=== PATIENT | male | born 1930 | race Caucasian/White ===

== ENCOUNTER 2017-06-07 17:40 | Inpatient (IN) | payer MEDICARE, MEDICAID ==
[~2017-06-07] VITALS: Ht 182.9 cm; Wt 73.9 kg
[2017-06-07] MEDS ORDERED: CLOP75TA33 PO (18:51)
[2017-06-07] MEDS ORDERED: MEMA10TA PO (18:51)
[2017-06-07] MEDS ORDERED: FLUO20CA36 PO (18:51)
[2017-06-07] MEDS ORDERED: LOSA100T15 PO (18:51)
[2017-06-07] MEDS ORDERED: ATOR10TA PO (18:51)
[2017-06-07] MEDS ORDERED: ERGO500040 PO (18:51)
[2017-06-07] MEDS ORDERED: SITA1TAB2 PO (18:51)
--- NOTE | 2017-06-07 19:25 | NUR ---
Pt had unwitnessed fall and does not know anything about the circumstances. Pt has approx 2-3 cm lac on right rear parietal area, not actively bleeding, c/o nausea, doesn't remember if he had LOC. Pt A&Ox2, baseline. No apparent muscle deficits. Pt denies CP, SOB, dizziness, no other complaints, no distress noted.
--- NOTE | 2017-06-07 19:33 | NUR ---
Pt taken to CT
[2017-06-07 19:36] LABS: BASOPHILS # (AUTO) 0.1 K/uL (0.0-8.0); BASOPHILS % (AUTO) 0.9 % (0.0-2.0); EOSINOPHILS # (AUTO) 0.4 K/uL (0.0-0.7); EOSINOPHILS % (AUTO) 5.5 % (0.0-7.0); HEMATOCRIT 37.7 % (36.7-47.1); HEMOGLOBIN 12.9 g/dL (12.5-16.3); LYMPHOCYTES # (AUTO) 1.1 K/uL (20.0-40.0); LYMPHOCYTES % (AUTO) 16.1 % (20.5-51.5); MEAN CORPUSCULAR HGB CONC 34 g/dL (32.5-36.3); MEAN CORPUSCULAR VOLUME 96.8 fL (73.0-96.2); MONOCYTES # (AUTO) 0.7 K/uL (2.0-10.0); MONOCYTES % (AUTO) 9.6 % (0.0-11.0); NEUTROPHILS # (AUTO) 4.6 K/uL (1.8-8.9); NEUTROPHILS % (AUTO) 67.9 % (38.5-71.5); PLATELET COUNT (AUTO) 128 K/uL (152-348); RED BLOOD CELL COUNT(AUTO) 3.89 MIL/uL (4.06-5.63); WHITE BLOOD COUNT (AUTO) 6.8 K/uL (3.6-10.2)
[2017-06-07 19:49] LABS: ALANINE AMINOTRANSFERASE 27 U/L (16-63); ALKALINE PHOSPHATASE 84 U/L (50-136); ASPARTATE AMINOTRANSFERASE 19 U/L (15-37); BILIRUBIN,DIRECT 0.1 mg/dL (0.0-0.2); BILIRUBIN,TOTAL 0.5 mg/dL (0.2-1.0); CARBON DIOXIDE 33 mmol/L (21-32); CHLORIDE 106 mmol/L (98-107); CREATININE 1.3 mg/dL (0.6-1.3); GLUCOSE 155 mg/dL (74-106); POTASSIUM 4.8 mmol/L (3.5-5.1); TOTAL PROTEIN, SERUM 7.2 g/dL (6.4-8.2); UREA NITROGEN, BLOOD 29 mg/dL (7-18)
--- NOTE | 2017-06-07 19:52 | NUR ---
Pt back from CT
--- NOTE | 2017-06-07 20:45 | NUR ---
Orthostatic VS LyinHR, 155/85 Standin HR, 143/87 informed
--- NOTE | 2017-06-07 21:52 | NUR ---
Pt was getting anxious and pulled off his monitor leads, informed, administered Ativan.
[2017-06-07] MEDS ORDERED: LORAZEPAM 2 MG/1 ML VIAL IV ONE (22:00)
[2017-06-07] MEDS ORDERED: LORAZEPAM 2 MG/1 ML VIAL ONE (22:06)
--- NOTE | 2017-06-07 22:43 | NUR ---
Report given to Randolph VILLAGRAN on Telemetry. Patient to be admitted to Telemetry , Room 217. Patient will be admitted under the care of Dr Jewel Crisostomo. Belongings list completed. Daughter at bedside. No acute distress noted. VSS.
[2017-06-07 23:35] VITALS: BP 146/65
--- NOTE | 2017-06-07 23:41 | NUR ---
NEW ADMIT FROM ER ADMITTED FOR FALL OBSERVATION. PATIENT IS CONFUSED BUT EASILY REDIRECTABLE. NO S/S OF PAIN OR DISTRESS. SAFETY MEASURES INITIATED, WILL CONTINUE TO MONITOR PATIENT
[2017-06-07] MEDS ORDERED: ONDANSETRON 4 MG/2 ML VIAL IV PRN (23:45)
[2017-06-07] MEDS ORDERED: HYDROCODONE/APAP 5-325MG TABLET PO PRN (23:45)
[2017-06-07] MEDS ORDERED: DEXTROSE 50% 50 ML DISP.SYRIN IV PRN (23:45)
[2017-06-07] MEDS ORDERED: Z GUARD REMEDY PASTE 57 GM TUBE TOP PRN (23:45)
[2017-06-07] MEDS ORDERED: ERGOCALCIFEROL 50,000 UNIT CAPSULE PO SCH (23:45)
[2017-06-07] MEDS ORDERED: ACETAMINOPHEN 325 MG TABLET PO PRN (23:45)
[2017-06-07] MEDS ORDERED: MAGNESIUM HYDROXIDE 30 ML LIQUID UDC PO PRN (23:45)
[2017-06-08 04:00] VITALS: BP 143/58
--- NOTE | 2017-06-08 05:50 | NUR ---
PATIENT CONFUSED THROUGHOUT THE NIGHT CONSISTENTLY TAKING ALL HIS CLOTHES OFF. MARVIN WRAP PLACED AROUND THE HEAD AND SECURED. PATIENT WITH NO EVIDENCE OF PAIN OR DISTRESS. SAFETY MEASURES MAINTAINED AT ALL TIMES
[2017-06-08] MEDS: BLOOD SUGAR DIAGNOSTIC 1 EACH STRIP VI SCH ×4 (06:45→21:23)
--- NOTE | 2017-06-08 07:39 | NUR ---
PT RECEIVED IN BED SLEEPING,NO C/O PAIN NOTED .V/S ARE STABLE.SITTER AT BED SIDE.
[2017-06-08] MEDS: SITAGLIPTIN PHOSPHATE 50 MG TABLET PO SCH (08:15)
[2017-06-08] MEDS: CLOPIDOGREL 75 MG TABLET PO SCH (08:15)
[2017-06-08] MEDS: MEMANTINE HCL 10 MG TABLET PO SCH ×2 (08:16→21:17)
[2017-06-08] MEDS: FLUOXETINE HCL 20 MG CAPSULE PO SCH (08:16)
[2017-06-08] MEDS: LOSARTAN POTASSIUM 50 MG TABLET PO SCH (08:16)
[2017-06-08] MEDS: METFORMIN HCL 500 MG TABLET PO SCH ×2 (08:16→17:12)
[2017-06-08] MEDS ORDERED: MEMANTINE HCL 10 MG TABLET PO SCH (09:00)
[2017-06-08] MEDS ORDERED: SITAGLIPTIN PHOSPHATE 50 MG TABLET PO SCH (09:00)
[2017-06-08 10:16] LABS: MONOCYTES # (AUTO) 0.4 K/uL (2.0-10.0); RED BLOOD CELL COUNT(AUTO) 3.45 MIL/uL (4.06-5.63)
[2017-06-08 10:29] LABS: BASOPHILS % (AUTO) 0.7 % (0.0-2.0); EOSINOPHILS # (AUTO) 0.3 K/uL (0.0-0.7); EOSINOPHILS % (AUTO) 6.1 % (0.0-7.0); LYMPHOCYTES # (AUTO) 0.8 K/uL (20.0-40.0); LYMPHOCYTES % (AUTO) 17.7 % (20.5-51.5); MEAN CORPUSCULAR HEMOGLOBIN 32.8 uug (23.8-33.4); MEAN CORPUSCULAR HGB CONC 34 g/dL (32.5-36.3); MEAN CORPUSCULAR VOLUME 96.3 fL (73.0-96.2); MONOCYTES % (AUTO) 8.4 % (0.0-11.0); NEUTROPHILS # (AUTO) 3.2 K/uL (1.8-8.9); NEUTROPHILS % (AUTO) 67.1 % (38.5-71.5); PLATELET COUNT (AUTO) 109 K/uL (152-348)
[2017-06-08 10:30] LABS: HEMATOCRIT 33.3 % (36.7-47.1); HEMOGLOBIN 11.3 g/dL (12.5-16.3); WHITE BLOOD COUNT (AUTO) 4.8 K/uL (3.6-10.2)
[2017-06-08 10:35] LABS: CARBON DIOXIDE 26 mmol/L (21-32); CHLORIDE 108 mmol/L (98-107); CHOLESTEROL 66 mg/dL (<200); CREATININE 1.1 mg/dL (0.6-1.3); GLUCOSE 163 mg/dL (74-106); HDL CHOLESTEROL 35 mg/dL (40-60); MAGNESIUM 1.9 mg/dL (1.8-2.4); PHOSPHOROUS 3.3 mg/dL (2.5-4.9); POTASSIUM 3.9 mmol/L (3.5-5.1); TRIGLYCERIDES 64 MG/DL (30-150); UREA NITROGEN, BLOOD 24 mg/dL (7-18)
[2017-06-08] MEDS: INSULIN REGULAR, HUMAN 300 UNIT/3 ML VIAL SQ PRN (11:39)
--- NOTE | 2017-06-08 12:19 | NUR ---
WOUND CARE CONSULT: PT PRESENTS WITH DRY INTACT DRESSING TO HEAD. ADMISSION PHOTO SHOWS STERI STRIPS. DRESSING NOT REMOVED AT THIS TIME. DEFER TO MD AND RECOMMEND SURGICAL CONSULT. PT ON ANTICOAGULANT. PT IS AMBULATORY WITH ASSISTANCE AND CONTINENT PER NURSING STAFF. CURRENT ELKIN SCORE IS 18. WILL SEE PRN. MD IN AGREEMENT WITH PLAN OF CARE.
[2017-06-08 12:23] VITALS: BP 111/56
[2017-06-08 15:05] VITALS: BP 118/64
[2017-06-08] MEDS: ATORVASTATIN 10 MG TABLET PO SCH (17:12)
--- NOTE | 2017-06-08 17:44 | NUR ---
PT RESTING IN HIS BED ,CALL LIGHT WITH IN REACH.SITTER IS AT BED SIDE FOR SAFETY.
[2017-06-08 20:00] VITALS: BP 135/87
--- NOTE | 2017-06-08 20:00 | NUR ---
PATIENT SLEEPS ON AND OFF, CONTINUES TO BE CONFUSED. NO EVIDENCE OF PAIN OR DISTRESS. SITTER REMAINS AT BED SIDE. SAFETY MAINTAINED AT ALL TIMES. CONTINUE TO MONITOR PATIENT
[2017-06-08] MEDS: ZOLPIDEM 5 MG TABLET PO PRN (21:18)
[2017-06-09 00:16] VITALS: BP 122/65
[2017-06-09 04:00] VITALS: BP 152/68
[2017-06-09] MEDS: BLOOD SUGAR DIAGNOSTIC 1 EACH STRIP VI SCH ×4 (06:42→20:29)
--- NOTE | 2017-06-09 06:48 | NUR ---
PATIENT SLEPT ON AND OFF THROUGH THE NIGHT, HE HAD LOW GRADE FEVER AT 99.4, TYLENOL GIVEN WITH EFFECT. SITTER REMAINS AT BED SIDE
--- NOTE | 2017-06-09 07:00 | NUR ---
RECEIVED PATIENT ON BED, ASLEEP, A AND O X 1 WITH CONFUSION AND FORGETFULNESS. NO ACUTE DISTRESS NOTED. WITH HEPLOCK ON THEL EFT AC # 20, INTACT AND PATENT. WITH SURGICAL WOUND ON TOP OF THE HEAD SECURED WITH TABBY, COVERED WITH DRESSING. NO SIGNS SND SYMPTOMS OF INFECTION. NO INSULIN COVERAGE NEEDED FOR BREAKFAST, 1:1 SITTER AT BEDSIDE. ALL COMFORT MEASURES PROVIDED. WILL CONTINUE TO MONITOR
[2017-06-09] MEDS: SITAGLIPTIN PHOSPHATE 50 MG TABLET PO SCH (08:21)
[2017-06-09] MEDS: CLOPIDOGREL 75 MG TABLET PO SCH (08:21)
[2017-06-09] MEDS: FLUOXETINE HCL 20 MG CAPSULE PO SCH (08:22)
[2017-06-09] MEDS: LOSARTAN POTASSIUM 50 MG TABLET PO SCH (08:22)
[2017-06-09] MEDS: MEMANTINE HCL 10 MG TABLET PO SCH ×2 (08:22→20:25)
[2017-06-09] MEDS: METFORMIN HCL 500 MG TABLET PO SCH ×2 (08:22→17:10)
[2017-06-09 10:46] VITALS: BP 119/43
--- NOTE | 2017-06-09 11:30 | NUR ---
PATIENT HAD EPISODE OF AGITATION SAYING HE WANTED "TO PUT A HOLE IN HIS FINGER SO THAT THE BLOOD WILL COME OUT", INFORMED DR. MORENO, SAID HE WILL COME AND SEE PATIENT.
[2017-06-09 11:35] LABS: *BILIRUBIN,URIN NEGATIVE (NEGATIVE); *BLOOD, URINE NEGATIVE (NEGATIVE); *CLARITY,URINE CLEAR (CLEAR); *COLOR,URINE YELLOW (YELLOW); *KETONES,URINE NEGATIVE (NEGATIVE); *PROTEIN,URINE NEGATIVE (NEGATIVE); *UROBILINOGEN,URINE 0.2 E.U./dl (NORMAL); LEUKOCYTE ESTERASE ,URINE 1+ (NEGATIVE); NITRITE, URINE NEGATIVE (NEGATIVE); UGLUCOSE NEGATIVE (NEGATIVE)
[2017-06-09 11:48] LABS: BACTERIA,URINE MODERATE /HPF (NONE SEEN); RBC,URINE 0-3 /HPF (0-3)
[2017-06-09 11:49] LABS: SQUAMOUS EPITHELIAL CELL,UR MODERATE /HPF (NONE SEEN)
--- NOTE | 2017-06-09 12:00 | NUR ---
SEEN AND EXAMINED BY DR. MORENO WITH ORDERS NOTED AND CARRIED OUT.
[2017-06-09] MEDS ORDERED: QUETIAPINE FUMARATE 25 MG TABLET PO ONE (12:15)
[2017-06-09 16:00] VITALS: BP 140/67
[2017-06-09 16:21] VITALS: BP 140/67
--- NOTE | 2017-06-09 16:30 | NUR ---
SEEN AND EXAMINED BY DR. TABARES FOR PSYCH CONSULT, WITH ORDERS NOTED AND CARRIED OUT.
[2017-06-09] MEDS: ATORVASTATIN 10 MG TABLET PO SCH (17:10)
--- NOTE | 2017-06-09 19:30 | NUR ---
PT IN ROOM ALERT AND CONFUSED. NO INCREASED AGITATION OR ABNORMAL BEHAVIOR AT THIS TIME. NO S/S OF HYPER/HYPOGLYCEMIA. NO ACTIVE BLEEDING OR S/S OF INFECTION NOTED TO AFFECTED AREA ON TOP OF HEAD. SITTER AT BEDSIDE AND BED ALARM NOTED. CONTINUE TO MONITOR FOR FALL OBSERVATION.
[2017-06-09 20:00] VITALS: BP 125/71
[2017-06-09] MEDS: INSULIN REGULAR, HUMAN 300 UNIT/3 ML VIAL SQ PRN (20:32)
[2017-06-09] MEDS ORDERED: QUETIAPINE FUMARATE 25 MG TABLET PO SCH (21:00)
[2017-06-09] MEDS: ZOLPIDEM 5 MG TABLET PO PRN (23:08)
[2017-06-10 04:55] VITALS: BP 143/60
--- NOTE | 2017-06-10 05:00 | NUR ---
PT IN ROOM ALERT WITH SOME CONFUSION BUT NO ACUTE DISTRESS. NO S/S OF INCREASED AGITATION AT THIS TIME. FREQUENT REMINDERS AND REORIENTATION ENFORCED. NO REACTION TO RECENT SEROQUEL GIVEN. BP NOTED 143/60. CONTINUE TO MONITOR. NO S/S OF HYPER/HYPOGLYCEMIA.
--- NOTE | 2017-06-10 07:00 | NUR ---
RECEIVED PATIENT ON BED, ASLEEP, A AND O X 1 WITH EPISODES OF CONFUSION AND AGITATION. NO ACUTE DISTRESS NOTED. 1:1 SITTER AT BEDSIDE. NO INSULIN COVERAGE NEEDED FOR AM. WITH WOUND ON TOP OF HEAD, DRESSING CHANGED LAST NIGHT BUT PATIENT KEEPS REMOVING THE DRESSING. NO S/S OF INFECTION NOTED, HEALING PROGRESSIVELY. NO COMPLAINTS OF PAIN/DISCOMFORT. ALL COMFORT MEASURES PROVIDED. ALL NEEDS ATTENDED AND ANTICIPATED WILL CONTINUE TO MONITOR CLOSELY.
[2017-06-10] MEDS: BLOOD SUGAR DIAGNOSTIC 1 EACH STRIP VI SCH ×3 (07:33→17:23)
[2017-06-10 08:00] VITALS: BP 150/77
[2017-06-10] MEDS: METFORMIN HCL 500 MG TABLET PO SCH ×2 (08:00→17:20)
[2017-06-10] MEDS ORDERED: LINAGLIPTIN 5 MG TABLET PO SCH (08:00)
[2017-06-10] MEDS: LOSARTAN POTASSIUM 50 MG TABLET PO SCH (08:03)
[2017-06-10] MEDS: MEMANTINE HCL 10 MG TABLET PO SCH (08:05)
[2017-06-10] MEDS: FLUOXETINE HCL 20 MG CAPSULE PO SCH (08:05)
[2017-06-10] MEDS: CLOPIDOGREL 75 MG TABLET PO SCH (08:06)
[2017-06-10] MEDS ORDERED: QUETIAPINE FUMARATE 25 MG TABLET PO SCH (09:00)
[2017-06-10] MEDS: NEOMY/BACITRAC/POLYMI OINT 28.35 GM TUBE TOP SCH ×2 (09:40→10:13)
[2017-06-10] MEDS ORDERED: QUET25TA PO ×2 (09:48)
[2017-06-10 11:37] VITALS: BP 131/56
[2017-06-10 16:17] VITALS: BP 118/62
[2017-06-10] MEDS: ATORVASTATIN 10 MG TABLET PO SCH (17:20)
--- NOTE | 2017-06-10 17:45 | NUR ---
PATIENT NOTED THAT WOUND ON TOP OF HEAD IS BLEEDING FROM HIM SCRATCHING AND PICKING AT IT. APPLIED PRESSURE ON SITE WITH GAUZE, COVERED WOUND WITH GAUZE AND WRAPPED WITH KERLIX TO SECURE TO PREVENT BLEEDING SINCE PATIENT IS ON ANTICOAGULANTS. WILL CONTINUE TO MONITOR.
--- NOTE | 2017-06-10 19:00 | NUR ---
RECEIVED PT AWAKE ON BED. DAUGHTER ON BEDSIDE. WILL BE DISCHARGE.
--- NOTE | 2017-06-10 20:19 | NUR ---
PT VITAL SIGNS WITHIN NORMAL LIMIT. PT RECENT BLOOD SUGAR LEVEL WAS 127. [facility]ANZ WILL TAKE THE PT. DAUGHTER AT BEDSIDE.
--- NOTE | 2017-06-10 20:20 | NUR ---
PT WAS DISCHARGED AT 2020H. GAVE DISCHARGE REPORT TO NORA Laguerre, [address] [facility]. PT WAS WHEELED OUT BY A GURBROOKS. GAVE REPORT THAT PT IS ON ANTICOAGULANT.
== END 2017-06-10 20:20 | DRG 73 ==
LOC: ER 17:41 → TELE 22:48 → MED 06-09 07:58
DX: G90.8 Other disorders of autonomic nervous system (principal); N17.0 Acute kidney failure with tubular necrosis; F02.81 Dementia in other diseases classified elsewhere, unspecified severity, with behavioral disturbance; G30.9 Alzheimer's disease, unspecified; E11.9 Type 2 diabetes mellitus without complications; S01.01XA Laceration without foreign body of scalp, initial encounter; W19.XXXA Unspecified fall, initial encounter; E78.5 Hyperlipidemia, unspecified; Y92.009 Unspecified place in unspecified non-institutional (private) residence as the place of occurrence of the external cause; Z86.73 Personal history of transient ischemic attack (TIA), and cerebral infarction without residual deficits; Z79.899 Other long term (current) drug therapy; Z79.84 Long term (current) use of oral hypoglycemic drugs; F32.9 Major depressive disorder, single episode, unspecified; F29 Unspecified psychosis not due to a substance or known physiological condition; I10 Essential (primary) hypertension
CPT/HCPCS: 36415; 70030-TC; 70450; 71045; 72125; 83735; 84100; 85025; 85730; 93005; 93307; 97116; 97530; A4663; J1815; J2060; J7030